=== PATIENT | male | born 1985 | race Caucasian/White ===

== ENCOUNTER → 2017-11-24 | Outpatient (CLI) | payer OTHER ==
[~2017-11-24] MED LIST: AMOXICILLIN875 MG PO; NOHOMEMEDICATIONS; NORCO 5-325 TA1 EACH PO
== END ==
LOC: CAT 07:56
DX: Z13.6 Encounter for screening for cardiovascular disorders (principal)

== ENCOUNTER → 2019-06-07 | Outpatient (CLI) | payer BC, OTHER | LOC: ULTRA 10:05 | DX: R16.0 Hepatomegaly, not elsewhere classified (principal); K76.0 Fatty (change of) liver, not elsewhere classified ==

== ENCOUNTER → 2020-12-04 | Outpatient (CLI) | payer BC, OTHER ==
[~2020-12-04] MED LIST changes: +BACTRIM DS TAB1 EACH PO; +CYMBALTA30 MG PO; +KEFLEX500 MG PO; +TENORMIN25 MG PO
== END ==
LOC: SJCVCIMAG 10:01
PROVIDERS: ATTEND Internal Medicine
DX: I10 Essential (primary) hypertension (principal); Z79.899 Other long term (current) drug therapy